=== PATIENT | female | born 2000 | race Caucasian/White ===

== ENCOUNTER 2021-05-16 21:37 | Emergency (ER) | payer BC ==
[~2021-05-16] VITALS: Ht 162.6 cm; Wt 69.1 kg
--- NOTE | 2021-05-16 21:54 | PHYS DOC ---
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 and now it is all red.".. Patient is a 20 year old female who presents with above hx of insect bite to inside of right arm. Patient has pictures of initial bite areas approximately 1 cm on the mid upper arm medial side. Patient now has a central area of bite approximate 1 cm but surrounding erythema approximately 8 x 16 cm with some striation up to the axillary area. There is mild swelling in the right axillary nodes. Bite area is not particularly painful but it is somewhat itchy. Patient denies any history of immunosuppression. Patient is up-to-date with tetanus 4 months ago.. No recent travel. No significant ill contacts. Review of Systems: Review of Systems: Constitutional: Denies fever or chills Eyes: Denies change in visual acuity HENT: Denies nasal congestion or sore throat Respiratory: Denies cough or shortness of breath Cardiovascular: Denies chest pain or edema GI: Denies abdominal pain, nausea, vomiting, bloody stools or diarrhea : Denies dysuria Musculoskeletal: Denies enies rasback pain or joint pain Integument: Complains of insect bite right arm Neurologic: Denies headache, focal weakness or sensory changes Endocrine: Denies polyuria or polydipsia Lymphatic: Denies swollen glands Psychiatric: Denies depression or anxiety Family History: Family History: Noncontributory to presentation Current Medications: Current Meds: See nursing for home meds Allergies: Allergies: No known drug allergies Physical Exam: PE: Constitutional: Well developed, well nourished, moderate acute distress, non- toxic appearance. [] HENT: Normocephalic, atraumatic, bilateral external ears normal, oropharynx moist, no oral exudates, nose normal. [] Eyes: PERRLA, EOMI, conjunctiva normal, no discharge. [] Neck: Normal range of motion, no tenderness, supple, no stridor. [] Cardiovascular:Heart rate regular rhythm, no murmur [] Lungs & Thorax: Bilateral breath sounds clear to auscultation [] Abdomen: Bowel sounds normal, soft, no tenderness, no masses, no pulsatile mas ses. [] Skin: Warm, dry, no erythema, no rash. [] Except findings in right arm as per HPI Back: No tenderness, no CVA tenderness. [] Extremities: No tenderness, no cyanosis, no clubbing, ROM intact, no edema. [] Neurologic: Alert and oriented X 3, normal motor function, normal sensory function, no focal deficits noted. [] Psychologic: Affect anxious, judgement normal, mood normal. [] Current Patient Data: Vital Signs: Vital Signs Date Time Temp Pulse Resp B/P (MAP) Pulse Ox O2 Delivery O2 Flow Rate FiO2 05/16/21 21:37 99.7 74 18 144/94 99 Room Air EKG: EKG: [] Radiology/Procedures: Radiology/Procedures: [] Heart Score: C/O Chest Pain: N/A Risk Factors: Risk Factors: DM, Current or recent (<one month) smoker, HTN, HLP, family history of CAD, obesity. Risk Scores: Score 0 - 3: 2.5% MACE over next 6 weeks - Discharge Home Score 4 - 6: 20.3% MACE over next 6 weeks - Admit for Clinical Observation Score 7 - 10: 72.7% MACE over next 6 weeks - Early Invasive Strategies Course & Med Decision Making: Course & Med Decision Making Pertinent Labs and Imaging studies reviewed. (See chart for details) Bite does appear to be possibly spider bite. Suspect this would be a brown recluse. However due to the increased swelling and erythema will treat as cellulitis. Patient use moist warm compresses with salt water or Epson salts 4 times a day. After using compress massage area Polysporin 4 times a day. Patient take Bactrim DS twice a day. Patient follow-up primary care. Patient warned that if this was in fact a spider bite, the antibiotics were most likely not be helpful and she may had developed a necrotic lesion at this site. Patient return if any concerns. Impression: 1. Insect bite-suspect brown recluse 2. Cellulitis right upper arm [] Dragon Disclaimer: Yury Disclaimer: This electronic medical record was generated, in whole or in part, using a voice recognition dictation system. Departure Departure: Referrals: PCP,NO (PCP) Scripts Fluconazole (DIFLUCAN) 100 Mg Tablet 100 MG PO DAILY for take after complete antibiotic for 3 Days, #3 TAB Prov: TERRY QUIGLEY MD 05/16/21 Sulfamethoxazole/Trimethoprim (BACTRIM DS TABLET) 1 Each Tablet 1 TAB PO BID for cellulitis for 10 Days, #20 TAB 0 Refills Prov: TERRY QUIGLEY MD 05/16/21 Dragon Disclaimer This chart was dictated in whole or in part using Voice Recognition software in a busy, high-work load, and often noisy Emergency Department environment. It may contain unintended and wholly unrecognized errors or omissions. Dragon Disclaimer This chart was dictated in whole or in part using Voice Recognition software in a busy, high-work load, and often noisy Emergency Department environment. It may contain unintended and wholly unrecognized errors or omissions. Dragon Disclaimer This chart was dictated in whole or in part using Voice Recognition software in a busy, high-work load, and often noisy Emergency Department environment. It may contain unintended and wholly unrecognized errors or omissions. TERRY QUIGLEY MD May 16, 2021 21:54
[2021-05-16] MEDS ORDERED: SMZ/TMP 800/160MG TABLET. PO ONE (22:15)
[2021-05-16] MEDS ORDERED: FLUC100T7 PO (22:17)
[2021-05-16] MEDS ORDERED: SULF1TAB24 PO (22:17)
[2021-05-16 22:50] VITALS: BP 133/92
== END 2021-05-16 22:50 | disposition home or self-care (01) ==
LOC: ER 21:37
DX: S40.861A Insect bite (nonvenomous) of right upper arm, initial encounter (principal); L03.113 Cellulitis of right upper limb; W57.XXXA Bitten or stung by nonvenomous insect and other nonvenomous arthropods, initial encounter; Y93.89 Activity, other specified; Y92.89 Other specified places as the place of occurrence of the external cause; Y99.8 Other external cause status
CPT/HCPCS: 99283

== ENCOUNTER 2021-05-25 07:34 | Emergency (ER) | payer BC ==
[~2021-05-25] VITALS: Ht 162.6 cm; Wt 69.1 kg
[2021-05-25 07:34] VITALS: BP 137/92
[~2021-05-25 07:34] MED LIST: FLUC100T7 PO; SULF1TAB24 PO
[2021-05-25] MEDS ORDERED: DEXAMETHASONE 4 MG TABLET PO ONE (07:45)
[2021-05-25] MEDS ORDERED: diphenhydrAMINE HCL 25 MG CAPSULE PO ONE ×2 (07:45→07:52)
[2021-05-25] MEDS ORDERED: PRED20TA PO (07:45)
--- NOTE | 2021-05-25 07:46 | PHYS DOC ---
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 Patient was prescribed Bactrim by her PCP for concern for cellulitis/spider bite. PCP had instructed patient to discontinue use of the Bactrim and will call in a new prescription for additional antibiotic. PCP had also instructed her to start taking Benadryl which she did last night. PCP instructed her to present if any worsening of symptoms. Patient reports rash worse upon waking this morning and therefore presents to the ER for further evaluation. Denies tongue swelling or difficulty swallowing. Denies shortness of breath. Review of Systems: Review of Systems: Constitutional: Denies fever or chills Eyes: Denies redness or eye pain HENT: Denies nasal congestion or tongue swelling Respiratory: Denies cough or shortness of breath Cardiovascular: Denies chest pain or palpitations GI: Denies abdominal pain, nausea, or vomiting : Denies dysuria or hematuria Musculoskeletal: Denies back pain or joint pain Integument: Reports pruritic rash Neurologic: Denies headache, focal weakness or sensory changes Complete systems were reviewed and found to be within normal limits, except as documented in this note. Allergies: Allergies: Allergies Coded Allergies Type Severity Reaction Last Updated Verified No Known Drug Allergies 05/17/21 No Physical Exam: PE: Constitutional: Well developed, well nourished, no acute distress, non-toxic appearance HENT: Normocephalic, atraumatic, tongue normal, handling secretions normally Eyes: Conjunctiva normal, no discharge Neck: Normal range of motion, supple Lungs & Thorax: No respiratory distress, equal chest rise and fall, no stridor Skin: Warm, dry, diffuse maculopapular rash Extremities: No tenderness, ROM intact, no edema Neurologic: Alert and oriented X 3, no focal deficits noted Psychologic: Affect normal, judgment normal EKG: EKG: [] Radiology/Procedures: Radiology/Procedures: [] Heart Score: C/O Chest Pain: N/A Course & Med Decision Making: Course & Med Decision Making Patient presents with HPI and physical exam consistent for allergic drug rash from Bactrim. Patient had previously discontinued the Bactrim and will be called in a new prescription for additional antibiotic by her PCP. Due to worsening rash patient presents to the ER. Patient handling secretions on her own without any tongue swelling. No airway compromise. Steroid and Benadryl provided. Prescription for steroid provided. Patient stable for discharge with outpatient follow-up with PCP. Discussed findings and plan with patient, who acknowledges understanding and agreement. Yury Disclaimer: Yury Disclaimer: This electronic medical record was generated, in whole or in part, using a voice recognition dictation system. Departure Departure: Impression: Primary Impression: Allergic drug rash due to sulfonamide Disposition: HOME / SELF CARE / HOMELESS Condition: STABLE Referrals: PCP,NO (PCP) Patient Instructions: Drug Allergy, [id number], Drug Rash Additional Instructions: Please add Sulfa as an allergy and discontinue any future use of Bactrim. Use over the counter Benadryl 1 tab every 4-6 hours as needed for itching and/or rash. Scripts Prednisone (PREDNISONE) 20 Mg Tablet 2 TAB PO DAILY for Rash, #8 TAB Start this prescription tomorrow, Mon05/26/21 Prov: RAMIN MILLIGAN DO 05/25/21 RAMIN MILLIGAN DO May 25, 2021 07:46
[2021-05-25] MEDS ORDERED: DEXAMETHASONE 4 MG TABLET ONE (07:52)
== END 2021-05-25 07:57 | disposition home or self-care (01) ==
LOC: ER 07:34
DX: L27.0 Generalized skin eruption due to drugs and medicaments taken internally (principal); T37.0X5A Adverse effect of sulfonamides, initial encounter; Y92.89 Other specified places as the place of occurrence of the external cause
CPT/HCPCS: 99283; J8540; Q0163

== ENCOUNTER 2021-05-26 21:03 | Emergency (ER) | payer BC ==
[~2021-05-26] VITALS: Ht 162.6 cm; Wt 70.0 kg
[~2021-05-26 21:03] MED LIST changes: +PRED20TA PO
[2021-05-26 21:12] VITALS: BP 128/79
[2021-05-26] MEDS ORDERED: diphenhydrAMINE HCL 25 MG CAPSULE PO ONE (22:00)
[2021-05-26] MEDS ORDERED: FAMOTIDINE 20 MG TABLET PO ONE (22:00)
[2021-05-26] MEDS ORDERED: predniSONE 20 MG TABLET PO ONE (22:00)
--- NOTE | 2021-05-26 22:03 | PHYS DOC ---
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 Patient states that she was seen in the emergency room and treated with Bactrim for cellulitis. Patient states 5 days after starting the Bactrim she developed a rash all over her body. Patient was seen in the emergency room yesterday and given steroids and started on Keflex. Patient states that she is been taking Benadryl every 6 hours along with Keflex. Patient was also sent home with a Medrol Dosepak but denies starting it. Patient denies shortness of breath, cough. Has history of asthma. Review of Systems: Review of Systems: Constitutional: Denies fever or chills Eyes: Denies change in visual acuity HENT: Denies nasal congestion or sore throat Respiratory: Denies cough or shortness of breath Cardiovascular: Denies chest pain or edema GI: Denies abdominal pain, nausea, vomiting, bloody stools or diarrhea : Denies dysuria Musculoskeletal: Denies back pain or joint pain Integument: Reports red, itchy rash bilateral arms and legs Neurologic: Denies headache, focal weakness or sensory changes Endocrine: Denies polyuria or polydipsia Lymphatic: Denies swollen glands Psychiatric: Denies depression or anxiety Allergies: Allergies: Allergies Coded Allergies Type Severity Reaction Last Updated Verified sulfamethoxazole Allergy Unknown 05/25/21 Yes trimethoprim Allergy Unknown 05/25/21 Yes Physical Exam: PE: Constitutional: Well developed, well nourished, no acute distress, non-toxic appearance. [] HENT: Normocephalic, atraumatic, bilateral external ears normal, oropharynx moist, no oral exudates, nose normal. [] Eyes: PERRLA, EOMI, conjunctiva normal, no discharge. [] Neck: Normal range of motion, no tenderness, supple, no stridor. [] Cardiovascular:Heart rate regular rhythm, no murmur [] Lungs & Thorax: Bilateral breath sounds clear to auscultation [] Abdomen: Bowel sounds normal, soft, no tenderness, no masses, no pulsatile masses. [] Skin: Red, pruritic urticaria Back: No tenderness, no CVA tenderness. [] Extremities: No tenderness, no cyanosis, no clubbing, ROM intact, no edema. [] Neurologic: Alert and oriented X 3, normal motor function, normal sensory function, no focal deficits noted. [] Psychologic: Affect normal, judgement normal, mood normal. [] Current Patient Data: Vital Signs: Vital Signs Date Time Temp Pulse Resp B/P (MAP) Pulse Ox O2 Delivery O2 Flow Rate FiO2 05/26/21 21:12 98.5 89 16 128/79 99 Room Air EKG: EKG: [] Radiology/Procedures: Radiology/Procedures: [] Heart Score: C/O Chest Pain: No Risk Factors: Risk Factors: DM, Current or recent (<one month) smoker, HTN, HLP, family history of CAD, obesity. Risk Scores: Score 0 - 3: 2.5% MACE over next 6 weeks - Discharge Home Score 4 - 6: 20.3% MACE over next 6 weeks - Admit for Clinical Observation Score 7 - 10: 72.7% MACE over next 6 weeks - Early Invasive Strategies Course & Med Decision Making: Course & Med Decision Making Pertinent Labs and Imaging studies reviewed. (See chart for details) [] 18-year-old female presents with rash on bilateral arms and legs. Patient has been seen for same symptoms two different times. Patient was seen yesterday and given steroids and had her antibiotics switched. Rash has improved but is now on bilateral arms and legs. Patient states that rash is pruritic and burning. Last dose of Benadryl was at seventeen hundred. Patient started taking new antibiotic, Keflex for cellulitis. Patient denies starting Medrol Dosepak yet. Patient denies shortness of breath, cough. Patient given Benadryl, famotidine, steroids to help with rash. Instructed patient to fill her Medrol Dosepak and start taking it as directed. Dragon Disclaimer: [employer] Disclaimer: This electronic medical record was generated, in whole or in part, using a voice recognition dictation system. Departure Departure: Impression: Primary Impression: Urticaria due to drug allergy Disposition: HOME / SELF CARE / HOMELESS Condition: STABLE Referrals: PCP,NO (PCP) Patient Instructions: Hives, [id number] Additional Instructions: You are seen in the emergency room for hives. Continue taking Benadryl for itching. Start taking your Medrol Dosepak that was prescribed tomorrow. Please continue taking your antibiotic to treat cellulitis. If for any reason you have shortness of breath, cough, trouble breathing return to the emergency room immediately. If rash does not improve follow-up with your PCP or return to the emergency room for further management. EMERGENCY DEPARTMENT GENERAL DISCHARGE INSTRUCTIONS Thank you for coming to [facility] (ED) today and trusting us with you care. We trust that you had a positivie experience in our Emergency Department. If you wish to speak to the department management, you may call the director at [phone]. YOUR FOLLOW UP INSTRUCTIONS ARE FOLLOWS: 1. Do you have a private Doctor? If you do not have a private doctor, please ask for a resource list of physicians or clinics that may be able to assist you with follow up care. 2. The Emergency Physician has interpreted your x-rays. The X-Ray specialist will also review them. If there is a change in the findings, you will be notified in 48 hours when at all possible. 3. A lab test or culture has been done, your results will be reviewed and you will be notified if you need a change in treatment. ADDITIONAL INSTRUCTIONS AND INFORMATION: 1. Your care today has been supervised by a physician who is specially trained in emergency care. Many problems require more than one evaluation for a complete diagnosis and treatment. We recommend that you schedule your follow up appointment as recommended to ensure complete treatment of you illness or injury. If you are unable to obtain follow up care and continue to have a problem, or if your condition worsens, we recommend that you return to the ED. 2. We are not able to safely determine your condition over the phone nor are we able to give sound medical advice over the phone. For these safety reasons, if you call for medical advice we will ask you to come to the ED for further evaluation. 3. If you have any questions regarding these discharge instructions please call the ED at [phone]. SAFETY INFORMATION: In the interest of safety, wellness, and injury prevention; we encourage you to wear your sealbelt, if you smoke; quite smoking, and we encourage family to use a protective helmet for bicycling and other sporting events that present an increased risk for head injury. IF YOUR SYMPTOMS WORSEN OR NEW SYMPTOMS DEVELOP, OR YOU HAVE CONCERNS ABOUT YOUR CONDITION; OR IF YOUR CONDITION WORSENS WHILE YOU ARE WAITING FOR YOUR FOLLOW UP APPOINTMENT; EITHER CONTACT YOUR PRIMARY CARE DOCTOR, THE PHYSICIAN WHOSE NAME AND NUMBER YOU WERE GIVEN, OR RETURN TO THE ED IMMEDIATELY. KIMBER ROGERS APRN May 26, 2021 22:03
== END 2021-05-26 22:13 | disposition home or self-care (01) ==
LOC: ER 21:03
DX: L50.0 Allergic urticaria (principal); Z88.2 Allergy status to sulfonamides; Z88.1 Allergy status to other antibiotic agents
CPT/HCPCS: 99284; J7512; Q0163